=== PATIENT | male | born 1995 | race Caucasian/White ===

== ENCOUNTER 2024-08-13 11:19 | Outpatient (AMB) | payer OTHER, SELFPAY ==
--- NOTE | 2024-08-13 11:22 | A.OFFPC_ITS ---
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 Patient has no concerns at this time. Patient needs a tspot ordered. immunizations printed today. Envelope Machine Operator Required: No Accompanied by: Self / Same As Patient Allergies nuts Allergy (Severe, Uncoded 08/13/24 10:59) Anaphylaxis peanuts Allergy (Severe, Uncoded 08/13/24 10:59) Anaphylaxis Tobacco use date assessed: 08/13/24 Dental Screening Dental Screen Date: 08/13/24 Did you have a dental visit in the last 12 months?: Yes Did you have a dental problem in the last 6 months where you did not have access to dental care?: No Was dental information given to patient?: Patient has dentist HPI HPI Comments History of Present Illness Details 29 year old male with a past medical his tory of ADD presenting for follow up ADD: Remains on adderall 10mg XR daily. Takes as needed on work days ED with some interval improvement. Saw urology. Started with taking finasteride from [facility] site. 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 HEENT: Denies changes in vision and hearing. RESPIRATORY: Denies SOB and cough. CV: Denies palpitations and CP GI: Denies abdominal pain, nausea, vomiting and diarrhea. : Denies dysuria and urinary frequency. MSK: Denies new myalgia and joint pain. SKIN: Denies rash and pruritus. NEUROLOGICAL: Denies headache PSYCHIATRIC: Denies recent changes in mood. PHYSICAL EXAM: GENERAL: Alert and oriented x 3. NAD EYES: EOMI. Anicteric. HENT: Moist mucous membranes. No scleral icterus. No cervical lymphadenopathy. LUNGS: Clear to auscultation bilaterally. CARDIOVASCULAR: Regular rate and rhythm. No murmur. No JVD. ABDOMEN: Soft, non-tender +bs EXTREMITIES: No edema. Non-tender. SKIN: No rashes or lesions. Warm. NEUROLOGIC: No focal neurological deficits. CN II-XII grossly intact PSYCHIATRIC: Cooperative. Appropriate mood and affect [facility] Medical History (Updated 08/13/24 @ 13:25 by Cristy So MD) Peanut allergy Testicular torsion Surgical History History of wisdom tooth extraction Family History Father Arthritis Maternal Grandfather Breast cancer Social History Household Members: None Housing: House Are you a primary healthcare manager to a significant other at home: No Do you presently have visiting nurse or other home services: No 75 years or older and lives alone: No Alcohol intake: current Alcohol intake frequency: a few times a month Alcohol type: hard liquor Patient Tobacco Use Status: Never used Tobacco e-Cigarette/Vaping Use: Never Used Use of substances other than those prescribed or required for medical reasons: No Have you been hit, kicked, punched, or otherwise hurt by someone within the past year? If so, by whom?: No Do you feel safe in your current relationship?: No Current Relationship Is there a partner from a previous relationship who is making you feel unsafe now?: No Are you made to feel afraid or neglected: No service: No Current occupational status: employed Current occupation: [employer] Cognitive needs: No Hearing needs: No Vision needs: No Questionnaire PHQ-9 Over the last 2 weeks, how often have you been bothered by any of the following problems? 1. Little interest or pleasure in doing things: not at all 2. Feeling down, depressed, or hopeless: not at all 3. Trouble falling or staying asleep, or sleeping too much: not at all 4. Feeling tired or having little energy: not at all 5. Poor appetite or overeating: not at all 6. Feeling bad about yourself - or that you are a failure or have let yourself or your family down: not at all 7. Trouble concentrating on things, such as reading the newspaper or watching television: not at all 8. Moving or speaking so slowly that other people could have noticed. Or the opposite - being so fidgety or restless that you have been moving around a lot more than usual: not at all 9. Thoughts that you would be better off or of hurting yourself in some way: not at all Total score: 0 Depression Screening Interpretation: Negative (neg) Depression Screening Done: Yes 17908 - PHQ-9 Billing: Yes Source: Developed by Drs. Leonid Joe, Jennifer Henson, Javier Bhatti and colleagues, with an educational roberto from [employer]. Thrive Questionnaire Date Thrive assessed: 08/13/24 I am a: Patient What is your living situation today?: I have a steady place to live Within the past 12 months, did the food you bought not last and you didn't have the money to get more?: Never true Within the past 12 months, did you worry whether your food would run out before you got money to buy more?: Never true Do you have trouble paying for medicines?: No Do you have trouble getting transportation to medical appointments?: No Do you have trouble paying your heating and electricity bill?: No Do you have trouble taking care of your child, family member or friend?: No Do you have trouble with day-to-day activities such as bathing, preparing meals, shopping, managing finances, etc.?: No Are you currently unemployed and looking for a job?: No Are you interested in more education?: No Please select the resources that you would like help with: None Currently or been in a relationship where the following occur: No concerns repo rted THRIVE Score: 0 AUDIT C Alcohol Use Questionnaire (AUDIT-C) 1. How often do you have a drink containing alcohol?: Monthly or less 2. How many drinks containing alcohol do you have on a typical day when you are drinking?: 1 or 2 3. How often do you have six or more drinks on one occasion?: Never Total Score: 1 ELIN-7 AMB Questionnaire ELIN-7 Date ELIN - 7 assessed: 08/13/24 Feeling nervous, anxious, or on edge: 0 = Not at all Not being able to stop or control worryin = Not at all Worrying too much about different things: 0 = Not at all Trouble relaxin = Not at all Being so restless that it is hard to sit still: 0 = Not at all Feeling afraid as if something awful might happen: 0 = Not at all Source: Developed by Jennifer Andrews.W. Sixto, Javier Bhatti and colleagues, with an educational roberto from [employer]. ELIN-7 Assessment Billing ELIN-7 Assessment Tool: ELIN-7 Assessment 79104 Physical exam (Primary Care) Vital Signs: Last Vital Signs Pulse 50 08/13/24 11:38 Resp 12 08/13/24 11:38 BP 108/60 08/13/24 11:38 Pulse Ox 98 08/13/24 11:38 Oxygen Delivery Method Room Air 08/13/24 11:38 BMI result Body Mass Index 24.5 Tobacco/Smoking Status: Tobacco use Status Tobacco use date assessed 08/13/24 08/13/24 11:43 Patient Tobacco Use Status Never used Tobacco 08/13/24 11:43 e-Cigarette/Vaping Use Never Used 08/13/24 11:43 PHQ-9: PHQ-9 Score PHQ-9: Total score 0 08/13/24 11:43 Depression Screening Interpretation: Negative (neg) Thrive Assessment: Date of Thrive Assessment Date Thrive assessed 08/13/24 08/13/24 11:27 Currently or been in a relationship where the following occur: No concerns reported Assessment and Plan Assessment & Plan (1) ADD (attention deficit disorder): Code(s): F98.8 - Other specified behavioral and emotional disorders with onset usually occurring in childhood and adolescence Qualifiers: Attention deficit type: attention or concentration deficit Qualified Code(s): R41.840 - Attention and concentration deficit Plan: stable on current medications Medications: New epinephrine (EpiPen) for 2 doses 0.3 mg (0.3 mL) IM Q10M PRN 2 ea 0RF anaphylaxis sildenafil administer 30 minutes to 4 hours before activity 50 mg PO DAILY PRN 30 tabs 0RF sexual activity Coding Level of Care Code Est Pt Level 3 (14219) Diagnoses Attention or concentration deficit R41.840 Attention deficit type: attention or concentration deficit Additional Codes ELIN-7 Assessment Billing - ELIN-7 Assessment Tool: ELIN-7 Assessment 96647 ([id number])
[2024-08-13 11:38] VITALS: BP 108/60; PULSE 50; RESP 12; O2SAT 98; BMI 24.5
== END 2024-08-13 14:28 | disposition home or self-care (01) ==
PROVIDERS: PCP Internal Medicine; Visit Provider Internal Medicine
DX: R41.840 Attention and concentration deficit (principal)

== ENCOUNTER → 2024-08-13 11:19 | Outpatient (BNVA) | payer OTHER, SELFPAY | PROVIDERS: PCP Internal Medicine; Visit Provider Internal Medicine | DX: F98.8 Other specified behavioral and emotional disorders with onset usually occurring in childhood and adolescence (principal); R41.840 Attention and concentration deficit | CPT/HCPCS: 96127 ==

== ENCOUNTER 2025-04-29 14:10 | Outpatient (AMB) | payer BC, SELFPAY ==
--- NOTE | 2025-04-29 14:24 | A.OFFPC_ITS ---
Vital Signs 04/29/25 14:26 Height 5 ft 8 in Weight 162 lb 4 oz BMI 24.7 BP 128/74 Blood Pressure Location Lt brachial Position Sitting Respiration 12 Pulse 65 Pulse Source Pulse Oximeter Temp 98.4 F Temp Source Oral Pulse Oximetry (%) 98 Oxygen Delivery Method Room Air Intake Visit Reasons: CPE Intake Note: Physical. Having runny nose, sore throat, started yesterday. Believes it is allergies. Allergies nuts Allergy (Severe, Uncoded 04/29/25 14:25) Anaphylaxis peanuts Allergy (Severe, Uncoded 04/29/25 14:25) Anaphylaxis Tobacco use date assessed: 04/29/25 Dental Screening Dental Screen Date: 04/29/25 Did you have a dental visit in the last 12 months?: No Did you have a dental problem in the last 6 months where you did not have access to dental care?: No Was dental information given to patient?: Patient has dentist HPI HPI Comments History of Present Illness Details 29 year old male with a past medical his tory of ADD presenting for annual exam ADD: Remains on adderall 10mg XR daily. Takes as needed on work days ED with some interval improvement. Saw urology. Issue started when started taking finasteride from [facility] site. 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 HEENT: Denies changes in vision and hearing. RESPIRATORY: Denies SOB and cough. CV: Denies palpitations and CP GI: Denies abdominal pain, nausea, vomiting and diarrhea. : Denies dysuria and urinary frequency. MSK: Denies new myalgia and joint pain. SKIN: Denies rash and pruritus. NEUROLOGICAL: Denies headache PSYCHIATRIC: Denies recent changes in mood. PHYSICAL EXAM: GENERAL: Alert and oriented x 3. NAD EYES: EOMI. Anicteric. HENT: Moist mucous membranes. No scleral icterus. No cervical lymphadenopathy. LUNGS: Clear to auscultation bilaterally. CARDIOVASCULAR: Regular rate and rhythm. No murmur. No JVD. ABDOMEN: Soft, non-tender +bs EXTREMITIES: No edema. Non-tender. SKIN: No rashes or lesions. Warm. NEUROLOGIC: No focal neurological deficits. CN II-XII grossly intact PSYCHIATRIC: Cooperative. Appropriate mood and affect [facility] Medical History Peanut allergy Testicular torsion Surgical History History of wisdom tooth extraction Family History Father Arthritis Maternal Grandfather Breast cancer Social History Household Members: None Housing: House Are you a primary rn progressive care unit to a significant other at home: No Do you presently have visiting nurse or other home services: No 75 years or older and lives alone: No Alcohol intake: current Alcohol intake frequency: a few times a month Alcohol type: hard liquor Patient Tobacco Use Status: Never used Tobacco e-Cigarette/Vaping Use: Never Used Use of substances other than those prescribed or required for medical reasons: No service: No Current occupational status: employed Current occupation: [employer] Current occupational exposures/hazards: No Cognitive needs: No Hearing needs: No Vision needs: No Questionnaire PHQ-9 Over the last 2 weeks, how often have you been bothered by any of the following problems? 1. Little interest or pleasure in doing things: not at all 2. Feeling down, depressed, or hopeless: not at all 3. Trouble falling or staying asleep, or sleeping too much: not at all 4. Feeling tired or having little energy: not at all 5. Poor appetite or overeating: not at all 6. Feeling bad about yourself - or that you are a failure or have let yourself or your family down: not at all 7. Trouble concentrating on things, such as reading the newspaper or watching television: not at all 8. Moving or speaking so slowly that other people could have noticed. Or the opposite - being so fidgety or restless that you have been moving around a lot more than usual: not at all 9. Thoughts that you would be better off or of hurting yourself in some way: not at all Total score: 0 Depression Screening Interpretation: Negative Depression Screening Done: Yes 29259 - PHQ-9 Billing: Yes Source: Developed by Drs. Leonid Joe, Jennifer B.WJavier Urrutia and colleagues, with an educational roberto from [employer]. Thrive Questionnaire Date Thrive assessed: 04/29/25 I am a: Patient What is your living situation today?: I have a steady place to live Within the past 12 months, did the food you bought not last and you didn't have the money to get more?: Never true Within the past 12 months, did you worry whether your food would run out before you got money to buy more?: Never true Do you have trouble paying for medicines?: No Do you have trouble getting transportation to medical appointments?: No Do you have trouble paying your heating and electricity bill?: No Do you have trouble taking care of your child, family member or friend?: No Do you have trouble with day-to-day activities such as bathing, preparing meals, shopping, managing finances, etc.?: No Are you currently unemployed and looking for a job?: No Are you interested in more education?: No Please select the resources that you would like help with: None Currently or been in a relationship where the following occur: No concerns reported THRIVE Score: 0 AUDIT C Alcohol Use Questionnaire (AUDIT-C) 1. How often do you have a drink containing alcohol?: Monthly or less 2. How many drinks containing alcohol do you have on a typical day when you are drinking?: 1 or 2 3. How often do you have six or more drinks on one occasion?: Never Total Score: 1 ELIN-7 AMB Questionnaire ELIN-7 Date ELIN - 7 assessed: 04/29/25 Feeling nervous, anxious, or on edge: 0 = Not at all Not being able to stop or control worryin = Not at all Worrying too much about different things: 0 = Not at all Trouble relaxin = Not at all Being so restless that it is hard to sit still: 0 = Not at all Becoming easily annoyed or irritable: 0 = Not at all Feeling afraid as if something awful might happen: 0 = Not at all Total ELIN-7 score (0-4 normal; 5-9 mild; 10-14 moderate; 15-21 severe): 0 Source: Developed by Drs. Leonid Joe, Javier Hernandez and colleagues, with an educational roberto from [employer]. ELIN-7 Assessment Billing ELIN-7 Assessment Tool: ELIN-7 Assessment 02640 Physical exam (Primary Care) Vital Signs: Last Vital Signs Temp 98.4 F 04/29/25 14:26 Pulse 65 04/29/25 14:26 Resp 12 04/29/25 14:26 BP 128/74 04/29/25 14:26 Pulse Ox 98 04/29/25 14:26 Oxygen Delivery Method Room Air 04/29/25 14:26 BMI result Body Mass Index 24.7 Tobacco/Smoking Status: Tobacco use Status Tobacco use date assessed 04/29/25 04/29/25 14:32 Patient Tobacco Use Status Never used Tobacco 04/29/25 14:25 e-Cigarette/Vaping Use Never Used 04/29/25 14:25 PHQ-9: PHQ-9 Score PHQ-9: Total score 0 04/30/25 09:14 Depression Screening Interpretation: Negative Thrive Assessment: Date of Thrive Assessment Date Thrive assessed 04/29/25 04/29/25 14:25 Currently or been in a relationship where the following occur: No concerns reported Coding Level of Care Code Est Pt Prev Care 18-39y(07892) Diagnoses Physical exam Z00.00 Attention or concentration deficit R41.840 Attention deficit type: attention or concentration deficit Additional Codes ELIN-7 Assessment Billing - ELIN-7 Assessment Tool: ELIN-7 Assessment 79891 ([id number]) PHQ-9 - 97494 - PHQ-9 Billing: Yes ([id number]) Assessment & Plan Assessment & Plan (1) Physical exam: Code(s): Z00.00 - Encounter for general adult medical examination without abnormal findings (2) ADD (attention deficit disorder): Code(s): F98.8 - Other specified behavioral and emotional disorders with onset usually occurring in childhood and adolescence Category: Medical Qualifiers: Attention deficit type: attention or concentration deficit Qualified Code(s): R41.840 - Attention and concentration deficit Plan 29 year old for CPE Interval history reviewed ADD stable Preventive measures up to date Orders: Orders Comprehensive Met. Panel 04/29/25 N52.9 - Male erectile dysfunction, unspecified, R41.840 - Attention and concentration deficit, Z13.0 - Encounter for screening for diseases of the blood and blood-forming organs and certain disorders involving the immune mechanism, Z13.220 - Encounter for screening for lipoid disorders, Z13.228 - Encounter for screening for other metabolic disorders Lipid Panel 04/29/25 N52.9 - Male erectile dysfunction, unspecified, R41.840 - Attention and concentration deficit, Z13.0 - Encounter for screening for diseases of the blood and blood-forming organs and certain disorders involving the immune mechanism, Z13.220 - Encounter for screening for lipoid disorders, Z13.228 - Encounter for screening for other metabolic disorders TSH reflex Free T4 04/29/25 N52.9 - Male erectile dysfunction, unspecified, R41.840 - Attention and concentration deficit, Z13.0 - Encounter for screening for diseases of the blood and blood-forming organs and certain disorders involving the immune mechanism, Z13.220 - Encounter for screening for lipoid disorders, Z13.228 - Encounter for screening for other metabolic disorders Hemoglobin A1c 04/29/25 N52.9 - Male erectile dysfunction, unspecified, R41.840 - Attention and concentration deficit, Z13.0 - Encounter for screening for diseases of the blood and blood-forming organs and certain disorders involving the immune mechanism, Z13.220 - Encounter for screening for lipoid disorders, Z13.228 - Encounter for screening for other metabolic disorders Estradiol Ultra Sensitive 04/29/25 N52.9 - Male erectile dysfunction, unspecified, R41.840 - Attention and concentration deficit, Z13.0 - Encounter for screening for diseases of the blood and blood-forming organs and certain disorders involving the immune mechanism, Z13.220 - Encounter for screening for lipoid disorders, Z13.228 - Encounter for screening for other metabolic disorders UA CC w/rflx Micro + Cult 04/29/25 N52.9 - Male erectile dysfunction, unspecified, R41.840 - Attention and concentration deficit, Z13.0 - Encounter for screening for diseases of the blood and blood-forming organs and certain disorders involving the immune mechanism, Z13.220 - Encounter for screening for lipoid disorders, Z13.228 - Encounter for screening for other metabolic disorders Complete Blood Count Auto Diff 04/29/25 N52.9 - Male erectile dysfunction, unspecified, R41.840 - Attention and concentration deficit, Z13.0 - Encounter for screening for diseases of the blood and blood-forming organs and certain disorders involving the immune mechanism, Z13.220 - Encounter for screening for lipoid disorders, Z13.228 - Encounter for screening for other metabolic disorders Testosterone, Free/Total 04/29/25 N52.9 - Male erectile dysfunction, unspecified, R41.840 - Attention and concentration deficit, Z13.0 - Encounter for screening for diseases of the blood and blood-forming organs and certain disorders involving the immune mechanism, Z13.220 - Encounter for screening for lipoid disorders, Z13.228 - Encounter for screening for other metabolic disorders Sex Hormone Binding Globulin 04/29/25 N52.9 - Male erectile dysfunction, unspecified, R41.840 - Attention and concentration deficit, Z13.0 - Encounter for screening for diseases of the blood and blood-forming organs and certain disorders involving the immune mechanism, Z13.220 - Encounter for screening for lipoid disorders, Z13.228 - Encounter for screening for other metabolic disorders
[2025-04-29 14:26] VITALS: BP 128/74; PULSE 65; RESP 12; TEMP 36.9; O2SAT 98; BMI 24.7
--- OUTSIDE RECORDS SUMMARY | 2025-04-29 15:59 | XMS_ITS | Clinical Summary ---
Author Organization [facility] Address [address] [place] [id number] Phone Care Team Providers Care Rattan Worker Name Role Phone Unavailable Primary Care Provider Unavailabl e Immunizations Immunization Administration Dates Next Due DTaP 05/06/1999, 5,1994,09/01,1994 Hep B, ped/adol 02/01/1995,1994,1994 Hib (PRP-T) 08/02/1995, 4,1994,06/30 MMR 05/06/1999,1995 Meningococcal Conj (Menactra) MCV4P 07/10/2012,0 05/27/2008 OPV 05/06/1999, 5,1994,06/30 Td (adult) (Tenivac), 5 Lf t etanus toxoid, PF, adsorbed 03/18/2004 Tdap 05/28/2009 Varicella 05/27/2008,05/06/1999 Family History Relation Name Status Comments Father Alive DM, obesity, hy pertension Maternal Grandfather Alive CAD Maternal Grandmother Alive healthy Mother Alive healthy Other Alive Siblings: Broth er and sister - healthy Paternal Grandfather Alive DM, CAD , hypertension, hyperlipidemia Paternal Grandmother Alive healthy Social History Tobacco Use Types Packs/Day Years Used Date Smoking Tobacco: Never Assessed Sex and Gender Information Value Date Recorded Sex Assigned at Not on file Legal Sex Male 6:19 PM EDT Gender Identity Not on file Sexual Orientation Not on file Last Filed Vital Signs Vital Sign Reading Time Taken Comments Blood Pressure 106/66 07/10/2012 12:00 AM EDT Pulse - - Temperature 36.7 ??C (98 ??F) 01/23/2012 12:00 AM EST Respiratory Rate - - Oxygen Saturation - - Inhaled Oxygen Concentration - - Weight 64.4 kg (142 lb) 07/10/2012 12:00 AM EDT Height 171.5 cm (5' 7.5 ) 07/10/2012 12:00 AM ED T Body Mass Index 21.91 07/10/2012 12:00 AM EDT Plan of Treatment Health Maintenance Due Date Last Done Comments DTaP,Tdap,and Td Vaccines (7 - Td or Tdap) 05/28/2019 05/28/2009, 03/18/2004, 05/06/1999, Additional history exists Influenza Vaccines (#1) 2024 COVID-19 Vaccine ( season) 2024 Hepatitis B Vaccines Completed 02/01/1995, 1994, 1994 HIB Vaccines Completed 08/02/1995, 04/1994, 1994, Additional history exists IPV Vaccines Completed 05/06/1999, 06/1995, 1994, Additional history exists MMR Vaccines Completed 05/06/1999, 1995 Varicella Vaccines Completed 05/27/2008, 05/06/1999 Meningococcal Vaccine Completed 07/10/2012, 008 HPV Vaccines Aged Out No longer eligi ble based on patient's age to complete this topic Hepatitis A Vaccines Aged Out No long er eligible based on patient's age to complete this topic Men B Vaccine Aged Out No longer elig ible based on patient's age to complete this topic Pneumococcal Vaccine Aged Out No long er eligible based on patient's age to complete this topic
== END 2025-04-29 14:49 | disposition home or self-care (01) ==
LOC: HO.HMCFM 14:11
PROVIDERS: PCP Internal Medicine; Visit Provider Internal Medicine
DX: Z00.00 Encounter for general adult medical examination without abnormal findings (principal); R41.840 Attention and concentration deficit

== ENCOUNTER → 2025-04-29 14:10 | Outpatient (BNVA) | payer BC, SELFPAY | PROVIDERS: PCP Internal Medicine; Visit Provider Internal Medicine | DX: Z00.00 Encounter for general adult medical examination without abnormal findings (principal); R41.840 Attention and concentration deficit; N52.9 Male erectile dysfunction, unspecified; Z79.899 Other long term (current) drug therapy; Z13.30 Encounter for screening examination for mental health and behavioral disorders, unspecified; Z13.31 Encounter for screening for depression | CPT/HCPCS: 96127 ==

== ENCOUNTER 2025-11-03 15:50 | Outpatient (AMB) | payer BC, SELFPAY ==
--- NOTE | 2025-11-03 15:47 | MHC.PC.OV ---
Intake Visit Reasons: 6 month phone med Intake Note: Follow up Mixer Whipped Topping Required: No Allergies nuts Allergy (Severe, Uncoded 11/03/25 15:47) Anaphylaxis peanuts Allergy (Severe, Uncoded 11/03/25 15:47) Anaphylaxis Tobacco use date assessed: 11/03/25 Dental Screening Dental Screen Date: 04/29/25 HPI HPI Comments History of Present Illness Details 29 year old male with a past medical history of ADD presenting for follow up He has been having recurrent right pubic swelling and discomfort since end of June. He has He was seen in the ER on 07/28 at [facility] for right lower abdominal pain and groin tenderness. Radiation into the testicles. He had CT abd with iv contrast and scrotal u/s were performed. CT abd/pelvis with trace free fluid within the pelvis which may be physiologic, otherwise no acute findings. Scrotal u/s with right epididymal head cyst, right sided varicocele, left 2 epidydymal head cysts and left sided varicocele. No evidence of testicular torsion. He continues to have the pain and swelling with lifting. ADD: Remains on adderall 10mg XR daily. Takes as needed on work days ED with some interval improvement. Saw urology. Issue started when started taking finasteride from [facility] like site. 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 HPI PHYSICAL EXAM: Telehealth ON LICENSE OF [facility] Medical History Peanut allergy Testicular torsion Surgical History History of wisdom tooth extraction Family History Father Arthritis Maternal Grandfather Breast cancer Social History Household Members: None Housing: House Are you a primary career agent to a significant other at home: No Do you presently have visiting nurse or other home services: No 75 years or older and lives alone: No Alcohol intake: current Alcohol intake frequency: a few times a month Alcohol type: hard liquor Patient Tobacco Use Status: Never used Tobacco e-Cigarette/Vaping Use: Never Used service: No Current occupational status: employed Current occupation: [employer] Current occupational exposures/hazards: No Cognitive needs: No Hearing needs: No Vision needs: No Questionnaire Thrive Questionnaire Date Thrive assessed: 04/29/25 AUDIT C Alcohol Use Questionnaire (AUDIT-C) 1. How often do you have a drink containing alcohol?: Never 3. How often do you have six or more drinks on one occasion?: Never Total Score: 0 ELIN-7 AMB Questionnaire ELIN-7 Date ELIN - 7 assessed: 04/29/25 Source: Developed by Drs. Leonid Joe, Jennifer Henson, Javier Bhatti and colleagues, with an educational roberto from [employer]. Physical exam (Primary Care) Tobacco/Smoking Status: Tobacco use Status Tobacco use date assessed 11/03/25 11/03/25 15:49 Patient Tobacco Use Status Never used Tobacco 11/03/25 15:49 e-Cigarette/Vaping Use Never Used 11/03/25 15:49 Thrive Assessment: Date of Thrive Assessment Date Thrive assessed 04/29/25 11/03/25 15:49 Telehealth Telehealth Telehealth Platform: Telephone Location of provider rendering services: practice address Location of patient: address on file Patient Identification confirmed using: Name, : Yes Telehealth method: voice only Patient verbally consented to treatment: No Patient verbally consented to billing insurance company: No Patient informed of any privacy concerns related to visit: No Minutes spent on Phone/Video with Pt.: 32 Coding Level of Care Code Tele Est Pt Level 4 (39120) Diagnoses Right inguinal pain R10.31 History of torsion of testis Z87.438 Assessment & Plan Assessment & Plan (1) Right inguinal pain: Code(s): R10.31 - Right lower quadrant pain Category: Medical (2) History of torsion of testis: Code(s): Z87.438 - Personal history of other diseases of male genital organs Category: Medical Plan Right pubic, testicular pain and swelling, intermittent Referral to general surgery for evaluation Advised if acute severe pain to go to the ER ADD is stable on medications
--- OUTSIDE RECORDS SUMMARY | 2025-11-04 01:26 | XMS_ITS | Encounter Summary ---
Author Organization [facility] Address [address] [place] [id number] Phone Care Team Providers Care Bioinformatics Engineer Name Role Phone Unavailable Primary Care Provider Unavailabl e Encounter Details Date Type Department Care Team (Late st Contact Info) Description 04/15/2018 Conversion Encounter [facility] [address] [address] Social History Tobacco Use Types Packs/Day Years Used Date Smoking Tobacco: Never Assessed Sex and Gender Information Value Date Recorded Sex Assigned at Not on file Legal Sex Male 6:19 PM EDT Gender Identity Not on file Sexual Orientation Not on file documented as of this encounter Plan of Treatment Not on file documented as of this encounter Visit Diagnoses Not on filedocumented in this encounter
--- OUTSIDE RECORDS SUMMARY | 2025-11-04 01:26 | XMS_ITS | Clinical Summary ---
Author Organization [facility] Address [address] [place] [phone] Phone Care Team Providers Care Eye Technician Name Role Phone Unavailable Primary Care Provider [...] AM EDT Pulse - - Temperature 36.7 C (98 F) 01/23/2012 12:00 AM EST Respiratory Rate - [...] 05/28/2019 05/28/2009, 03/18/2004, 05/06/1999, Additional history exists HPV Vaccines (1 - 3-dose SCDM series) 2021 Influenza Vaccines (#1) 2025 COVID-19 Vaccine (2024- season) 2025 Hepatitis B Vaccines Completed 02/01/1995, 1994, 1994 HIB Vaccines Completed 08/02/1995, 04/1994, 1994, Additional history exists IPV Vaccines Completed 05/06/1999, 06/1995, 1994, Additional history exists MMR Vaccines Completed 05/06/1999, 1995 Varicella Vaccines Completed 05/27/2008, 05/06/1999 Meningococcal Vaccine Completed 07/10/2012, 008 Hepatitis A Vaccines Aged Out No long er eligible based on patient's age to complete this topic Men B Vaccine Aged Out No longer elig ible based on patient's age to complete this topic Pneumococcal Vaccine Aged Out No long er eligible based on patient's age to complete this topic
--- OUTSIDE RECORDS SUMMARY | 2025-11-04 01:26 | XMS_ITS | Clinical Summary ---
Author Organization [facility] Address [address] [place] [address] Care Team Providers Care Beer Runner Name Role Phone Cristy oS MD Primary Care Provider [phone] Allergies No known active allergies Medications Amphetamine-Dex troamphetamine (ADDERALL XR) 10 MG 24 hr capsule Take 1 capsule by mouth 1 (one) time each day. 03/06/2025 Active EPINEPHrine 0.3 MG/0.3ML auto-injector Inject 1 Syringe into a muscle if needed 10/22/2024 Active Immunizations Immunization Administration Dates Next Due COVID-19, mRNA (Pfizer Pre F all 2022) Monovalent, 30 mcg/0.3 ml 12/11/2021 Covid-19, mRNA (Pfizer Pre F all 2022) Monovalent, 30 mcg/0.3 ml harry-sucrose (12+) 01/07/2022 DTaP 05/06/1999, 5,1994,09/01,1994 Hep B (pedi) 02/01/1995,1994,1994 Hib (HbOC) 08/02/1995, 4,1994,06/30 MMR 05/06/1999,1995 Meningococcal ACWY (Menactra) 07/10/2012, 008 OPV, Trivalent (Admin Before 02/26/2016) 0 05/06/1999,02/01/1995,1994,06/30 Td - 03/18/2004 Tdap 10/27/2020,05/28/2009 Varicella 05/27/2008,05/06/1999 Social History Tobacco Use Types Packs/Day Years Used Date Smoking Tobacco: Never Assessed Sex and Gender Information Value Date Recorded Sex Assigned at Not on file Legal Sex Male 6:17 PM EDT Gender Identity Not on file Sexual Orientation Not on file Last Filed Vital Signs Vital Sign Reading Time Taken Comments Blood Pressure 111/70 07/20/2025 6:40 PM EDT Pulse 57 07/20/2025 6:40 PM EDT Temperature 36.7 C (98 F) 07/20/2025 6:40 PM EDT Respiratory Rate 16 07/20/2025 6:40 PM EDT Oxygen Saturation - - Inhaled Oxygen Concentration - - Weight - - Height - - Body Mass Index - - Plan of Treatment Health Maintenance Due Date Last Done Comments Hepatitis C Screening 1994 COVID-19 Vaccine ( season) 2025 01/07/2022, 12/11/2021 Influenza (#1) 2025 DTaP/Tdap/Td (8 - Td or Tdap) 10/27/2030 10/27/2020, 05/28/2009, 03/18/2004, Additional history exists Zoster (Shingrix) (1 of 2) 2044 05/27/2008, Hep B Completed 02/01/1995, 02/1994, 1994 Hib Completed 08/02/1995, 04/1994, 1994, Additional history exists Meningococcal ACWY Completed 07/10/2012, 05/27/2008 HPV Vaccine (No Doses Required) Completed Hep A Aged Out No longer eligi ble based on patient's age to complete this topic Pneumococcal Aged Out No longer eligi ble based on patient's age to complete this topic Insurance [employer] FEE FOR SERVICE HMO Care Teams Beer Runner Relationship Specialty Start Date End Date Cristy So MD [address] [address] PCP - General Internal Medicine 07/20/25
== END 2025-11-03 17:05 | disposition home or self-care (01) ==
LOC: HO.HMCFM 15:50
PROVIDERS: PCP Internal Medicine; Visit Provider Internal Medicine
DX: R10.31 Right lower quadrant pain (principal); N50.819 Testicular pain, unspecified; N50.3 Cyst of epididymis; Z87.438 Personal history of other diseases of male genital organs